=== PATIENT | female | born 1995 | race Caucasian/White ===

== ENCOUNTER 2019-02-22 20:33 | Emergency (ER) | payer MEDICAID ==
[~2019-02-22] VITALS: Ht 162.6 cm; Wt 54.4 kg
[2019-02-22 20:35] VITALS: BP 122/71
--- NOTE | 2019-02-22 20:35 | NUR ---
TO BED # 02 AMBULATORY
--- NOTE | 2019-02-22 20:42 | NUR ---
23 Y/O F PRESENTED TO ED WT C/O R ARM PAIN X 2 DAYS. 8/10 PAIN, PRESSURE AND THROBBING. +CMS. L HAND GRASPS GREATER THAN RIGHT. + TINGLING IN R ARM. PT SELF MEDICATED WITH TYLENOL AT 1600, WITH NO RELIEF. ERMD NOTIFIED. WILL CONTINUE TO MONITOR.
[2019-02-22 21:15] VITALS: BP 122/71
== END 2019-02-22 21:15 | disposition home or self-care (01) ==
LOC: MED 20:33
DX: S46.911A Strain of unspecified muscle, fascia and tendon at shoulder and upper arm level, right arm, initial encounter (principal); Z88.0 Allergy status to penicillin; X58.XXXA Exposure to other specified factors, initial encounter; Y93.89 Activity, other specified; Y92.89 Other specified places as the place of occurrence of the external cause; Y99.8 Other external cause status
CPT/HCPCS: 99282